=== PATIENT | male | born 1950 | race Caucasian/White ===

== ENCOUNTER 2017-09-19 13:13 | Day surgery (SDC) | payer MEDICARE, OTHER ==
[~2017-09-19] VITALS: Ht 180.3 cm; Wt 111.0 kg
[~2017-09-19 13:13] MED LIST: ALBU90OI INH; ASPI325; ASPI81EC PO; ATOR10 PO; CLOP75 PO; CLOPIDOGREL TAB 75M; Cleocin HCl300 MG PO; HORSE CHESTNUT; LISINOPRIL TAB 10M; METHYLPREDNISOLONE 4 MG; METO50 PO; PRAV20; PRED20 PO; Prednisone20 MG PO; Vibramycin100 MG PO; [UNRECOGNIZED DRUG - OTHER]
[2017-09-19] MEDS ORDERED: ERGO400 (15:01)
== END 2017-09-19 17:27 | disposition home or self-care (01) ==
LOC: ORSCSDS 13:13
PROVIDERS: Internal Medicine Gastroenterology
PROC: 0DBN8ZX Excision of Sigmoid Colon, Via Natural or Artificial Opening Endoscopic, Diagnostic (ICD-10-PCS; principal; 2017-09-19 15:00)
PROC: 0DBP8ZX Excision of Rectum, Via Natural or Artificial Opening Endoscopic, Diagnostic (ICD-10-PCS; principal; 2017-09-19 15:00)
PROC: 0W3P8ZZ Control Bleeding in Gastrointestinal Tract, Via Natural or Artificial Opening Endoscopic (ICD-10-PCS; principal; 2017-09-19 15:00)
PROC: 0DBH8ZX Excision of Cecum, Via Natural or Artificial Opening Endoscopic, Diagnostic (ICD-10-PCS; principal; 2017-09-19 15:00)
DX: K62.5 Hemorrhage of anus and rectum (principal); D12.0 Benign neoplasm of cecum; K63.5 Polyp of colon; K62.1 Rectal polyp; K64.8 Other hemorrhoids; Z86.010 Personal history of colon polyps; Z79.01 Long term (current) use of anticoagulants; Z79.82 Long term (current) use of aspirin; Z79.899 Other long term (current) drug therapy; Z87.891 Personal history of nicotine dependence; J44.9 Chronic obstructive pulmonary disease, unspecified; I73.9 Peripheral vascular disease, unspecified; K57.30 Diverticulosis of large intestine without perforation or abscess without bleeding
CPT/HCPCS: 88305; J7120

== ENCOUNTER → 2019-05-22 | Outpatient (CLI) | payer MEDICARE, OTHER ==
[~2019-05-22] MED LIST changes: +ERGO400
[2019-05-24 13:42] LABS: Stool Occult Bld Immuno 1 Negative (NEGATIVE)
== END | disposition home or self-care (01) ==
LOC: LAB SHORT 12:39 → LAB 12:39 → LAB SHORT 05-23 08:00
PROVIDERS: Family Medicine
DX: Z12.11 Encounter for screening for malignant neoplasm of colon (principal)
CPT/HCPCS: G0328

== ENCOUNTER 2019-06-10 10:03 | Day surgery (SDC) | payer MEDICARE, OTHER ==
[~2019-06-10] VITALS: Ht 177.8 cm; Wt 118.0 kg
[~2019-06-10 10:03] MED LIST changes: +ASPI81CH PO; +EPIPEN 2-P0.3 MG/0.3 IM; -HORSE CHESTNUT; +HORSE CHESTNUT PO; +METPRE4 PO; +TRIDERM28.4 GM TOP
[2019-06-10] MEDS ORDERED: PROAIR RESPICL90 MCG INH (10:07)
[2019-06-10] MEDS ORDERED: ACID REDUCER 1150 MG PO (10:08)
[2019-06-10] MEDS ORDERED: Vitamin D2000 UNIT PO (11:13)
[2019-06-10] MEDS ORDERED: CO Q-10100 MG PO (11:13)
--- NOTE | 2019-06-10 13:19 | NUR ---
PT TOLERATED KRISTEN WELL. DR STEWART TALKING WITH PT POST KRISTEN.
--- NOTE | 2019-06-10 14:35 | NUR ---
PT DRANK SIPS OF WATER WITH NO ASPIRATION. DISCHARGE INSTRUCTIONS REVIEWED ALL QUESTIONS ANSWERED. 20 G IV DISCONTINUED FROM RIGHT WRIST WITH INTACT CANNULA. PT ESCORTED OUT VIA WHEELCHAIR ESCORT.
== END 2019-06-10 22:43 | disposition home or self-care (01) ==
LOC: MHTC 10:03
DX: D49.89 Neoplasm of unspecified behavior of other specified sites (principal); I10 Essential (primary) hypertension; I34.0 Nonrheumatic mitral (valve) insufficiency; I70.0 Atherosclerosis of aorta; E66.9 Obesity, unspecified; G47.33 Obstructive sleep apnea (adult) (pediatric); J44.9 Chronic obstructive pulmonary disease, unspecified; Z87.891 Personal history of nicotine dependence; Z88.8 Allergy status to other drugs, medicaments and biological substances; Z79.82 Long term (current) use of aspirin; Z79.02 Long term (current) use of antithrombotics/antiplatelets; Z79.899 Other long term (current) drug therapy; Z68.36 Body mass index [BMI] 36.0-36.9, adult; Z85.46 Personal history of malignant neoplasm of prostate
CPT/HCPCS: 76376; 93312; 93325; J2250; J3010; J7030

== ENCOUNTER 2021-06-04 11:18 | Day surgery (SDC) | payer MEDICARE ==
[~2021-06-04] VITALS: Ht 180.3 cm; Wt 112.1 kg
[~2021-06-04 11:18] MED LIST changes: +ACID REDUCER 1150 MG PO; +CO Q-10100 MG PO; +PROAIR RESPICL90 MCG INH; +Vitamin D2000 UNIT PO
--- NOTE | 2021-06-04 14:39 | NUR ---
06/04/21 1439 Jassi Addison S IV D/C IN RIGHT HAND. IV INTACT AND PATIENT TOLERATED WELL.
== END 2021-06-04 14:02 | disposition home or self-care (01) ==
LOC: ORSCSDS 11:18
PROVIDERS: Internal Medicine Gastroenterology
PROC: 0DBN8ZX Excision of Sigmoid Colon, Via Natural or Artificial Opening Endoscopic, Diagnostic (ICD-10-PCS; principal; 2021-06-04 13:30)
PROC: 0DBL8ZX Excision of Transverse Colon, Via Natural or Artificial Opening Endoscopic, Diagnostic (ICD-10-PCS; principal; 2021-06-04 13:30)
DX: Z12.11 Encounter for screening for malignant neoplasm of colon (principal); Z86.010 Personal history of colon polyps; D12.3 Benign neoplasm of transverse colon; D12.5 Benign neoplasm of sigmoid colon; K57.30 Diverticulosis of large intestine without perforation or abscess without bleeding; K64.4 Residual hemorrhoidal skin tags; K62.89 Other specified diseases of anus and rectum; Z87.891 Personal history of nicotine dependence; Z85.46 Personal history of malignant neoplasm of prostate
CPT/HCPCS: 88305; J2704; J7120

== ENCOUNTER 2024-10-10 11:59 | Day surgery (SDC) | payer MEDICARE ==
[~2024-10-10] VITALS: Ht 177.8 cm; Wt 111.0 kg
[~2024-10-10 11:59] MED LIST changes: +AMLO5 PO; +Lactated Ringer's 1,000 ML IV ONE; -METO50 PO; +METO50ER PO
[2024-10-10] MEDS ORDERED: Midazolam HCl 1MG / ML 2ML Vial ONE (13:13)
[2024-10-10] MEDS ORDERED: Lactated Ringer's 1,000 ML IV ONE (13:13)
[2024-10-10] MEDS ORDERED: propofoL 50 ML IV ONE (13:21)
[2024-10-10 14:29] VITALS: BP 130/71
== END 2024-10-10 14:28 | disposition home or self-care (01) ==
LOC: ORSCSDS 11:59
PROVIDERS: Specialist
PROC: 0DBM8ZX Excision of Descending Colon, Via Natural or Artificial Opening Endoscopic, Diagnostic (ICD-10-PCS; principal; 2024-10-10 13:45)
DX: K62.5 Hemorrhage of anus and rectum (principal); Z86.0101 Personal history of adenomatous and serrated colon polyps; K63.5 Polyp of colon; Z85.46 Personal history of malignant neoplasm of prostate; Z85.51 Personal history of malignant neoplasm of bladder; K64.8 Other hemorrhoids; K64.4 Residual hemorrhoidal skin tags; G47.30 Sleep apnea, unspecified; E78.5 Hyperlipidemia, unspecified; J44.9 Chronic obstructive pulmonary disease, unspecified; I10 Essential (primary) hypertension; K21.9 Gastro-esophageal reflux disease without esophagitis; Z79.02 Long term (current) use of antithrombotics/antiplatelets; Z79.82 Long term (current) use of aspirin; Z79.899 Other long term (current) drug therapy
CPT/HCPCS: 88305; J2250; J2704; J7120

== ENCOUNTER 2025-06-04 08:53 | Day surgery (SDC) | payer MEDICARE, OTHER ==
[~2025-06-04] VITALS: Ht 177.8 cm; Wt 116.6 kg
[2025-06-04] VITALS (13 sets, daily range): BP systolic 102–161; BP diastolic 62–86
[~2025-06-04 08:53] MED LIST changes: -Lactated Ringer's 1,000 ML IV ONE; +MULVITA PO
[2025-06-04] MEDS ORDERED: NS 250 ML IV ONE (09:30)
[2025-06-04] MEDS ORDERED: Verapamil HCL 2.5 MG/ML 2ML Injection ONE (09:30)
[2025-06-04] MEDS ORDERED: NS 2,000 ML IV ONE (09:30)
[2025-06-04] MEDS ORDERED: Heparin Sodium 1000 Units/ML 10ML MDV ONE (09:30)
[2025-06-04] MEDS ORDERED: Nitroglycerin 2 MG/20 ML BTL ONE (09:31)
[2025-06-04] MEDS ORDERED: Midazolam HCl 1MG / ML 2ML Vial ONE (09:47)
[2025-06-04] MEDS ORDERED: FentaNYL Citrate 50 MCG/ML 2 ML Injection ONE (09:47)
[2025-06-04] MEDS ORDERED: NS 500 ML IV ONE (11:11)
--- NOTE | 2025-06-04 16:21 | NUR ---
Block Charting TR Band Removal: -2ml @ 1217 2ml added back in @ 1222 for small amount of bleeding at site -2ml @ 1412 -2ml @ 1446 -2ml @ 1501 Fully deflated at 1520. No bleeding swelling or hematoma at site. Dressing and armband in place.
--- NOTE | 2025-06-04 16:23 | NUR ---
Discharge. Pt taken by wheelchair to front entrance at approximately 1615. Pt alert and oriented post procedure, no chest pain reported. Pt verbalized understanding of all discharge instructions and follow up appointment. L/ac IV removed, gauze and coban applied. All personal belongings sent home with patient.
== END 2025-06-04 16:21 | disposition home or self-care (01) ==
LOC: MHTC 08:53
DX: I25.10 Atherosclerotic heart disease of native coronary artery without angina pectoris (principal); I25.82 Chronic total occlusion of coronary artery; I11.0 Hypertensive heart disease with heart failure; I50.9 Heart failure, unspecified; E78.5 Hyperlipidemia, unspecified; I73.9 Peripheral vascular disease, unspecified; I05.0 Rheumatic mitral stenosis; G47.33 Obstructive sleep apnea (adult) (pediatric); J44.9 Chronic obstructive pulmonary disease, unspecified; M19.90 Unspecified osteoarthritis, unspecified site; G89.29 Other chronic pain; M54.50 Low back pain, unspecified; K21.9 Gastro-esophageal reflux disease without esophagitis; I87.2 Venous insufficiency (chronic) (peripheral); C67.9 Malignant neoplasm of bladder, unspecified; D63.0 Anemia in neoplastic disease; E66.9 Obesity, unspecified; Z68.36 Body mass index [BMI] 36.0-36.9, adult; Z85.46 Personal history of malignant neoplasm of prostate; Z87.891 Personal history of nicotine dependence; Z79.02 Long term (current) use of antithrombotics/antiplatelets; Z79.82 Long term (current) use of aspirin; Z79.899 Other long term (current) drug therapy; Z88.8 Allergy status to other drugs, medicaments and biological substances
CPT/HCPCS: 76937; 93458; 99152; 99153; C1769; C1887; C1894; J1644; J2250; J3010; J7030; J7040; J7050; Q9967